=== PATIENT | male | born 1965 | race Caucasian/White ===

== ENCOUNTER → 2021-02-25 | Outpatient (CLI) | payer OTHER | LOC: COL.RAD 14:30 | DX: J32.9 Chronic sinusitis, unspecified (principal) ==

== ENCOUNTER → 2021-03-24 | Outpatient (CLI) | payer OTHER | LOC: COL.RAD 12:23 | DX: D49.89 Neoplasm of unspecified behavior of other specified sites (principal); J32.4 Chronic pansinusitis ==